=== PATIENT | male | born 1990 | race Hispanic/Latino ===

== ENCOUNTER 2017-10-20 11:22 | Emergency (ER) | payer MEDICARE ==
[2017-10-20 12:27] VITALS: BP 134/65
[2017-10-20 13:02] LABS: Basophils # (Auto) 0.1 K/mm3 (0.0-0.1); Basophils % (Auto) 1.1 % (0.0-1.8); Eosinophils # (Auto) 0.1 K/mm3 (0.0-0.4); Eosinophils % (Auto) 1.2 % (0.0-4.3); Hematocrit 41.7 % (35.5-45.6); Hemoglobin 14.6 gm/dl (11.8-15.2); Lymphocytes # (Auto) 1.7 K/mm3 (1.2-5.4); Lymphocytes % (Auto) 30.1 % (13.4-35.0); Mean Corpuscular HGB Conc 35 % (32-34); Mean Corpuscular Hemoglobin 31 pg (28-32); Mean Corpuscular Volume 88 fl (84-94); Monocytes # (Auto) 0.6 K/mm3 (0.0-0.8); Monocytes % (Auto) 9.6 % (0.0-7.3); Platelet Count 189 K/mm3 (140-440); Red Blood Count 4.72 M/mm3 (3.65-5.03); Red Cell Distribution Width 13.2 % (13.2-15.2)
[2017-10-20 13:25] LABS: BUN/Creatinine Ratio 16; Blood Urea Nitrogen 18 mg/dL (9-20); Calcium 9.4 mg/dL (8.4-10.2); Hemolysis Index 9
[2017-10-20 13:29] LABS: Bilirubin,Urine NEG (Negative); Blood,Urine NEG (Negative); Color,Urine Straw (Yellow); Protein,Urine <15 mg/dL mg/dL (Negative); Urobilinogen,Urine < 2.0 mg/dL (<2.0); WBC,Urine < 1.0 /HPF (0.0-6.0)
[2017-10-20] MEDS ORDERED: TYLENOL PO ONE (13:38)
[2017-10-20] MEDS ORDERED: ALUM-MAG HYDROX-SIMETH 200-200-20MG/5ML PO ONE (13:38)
[2017-10-20 13:43] LABS: Amphetamine Screen,Urine PRESUMPTIVE NEGATIVE; Benzodiazepines Screen,Urine PRESUMPTIVE NEGATIVE; Cannabinoid Screen,Urine PRESUMPTIVE NEGATIVE; Cocaine Screen,Urine PRESUMPTIVE NEGATIVE; Methadone Screen,Urine PRESUMPTIVE NEGATIVE; Opiate Screen,Urine PRESUMPTIVE NEGATIVE
--- NOTE | 2017-10-20 13:43 | Emergency Department Report ---
ED Psych HPI - General Chief Complaint: Psych Stated Complaint: MENTAL EVAL Time Seen by Provider: 10/20/17 13:27 Source: patient Mode of arrival: Ambulatory - History of Present Illness Initial Comments: Carrington is a 26 yo male with hx of autism who presents 2 weeks of destructive combative behavior. I obtained hx from caregiver Tobin who is bedside. Carrington has been a resident of this senior living for 4 years. He has a hx of property destruction. He has been kicking pepe and throwing objects. He is threatening to harm his roommates. [facility] advanced practice professional has requested psychiatric evaluation. He does have a personal psychiatrist. Carrington admits that he is angry. However, he does not want to hurt himself or anyone else. He has central mild stomach pain. No other symptoms. MD Complaint: other (combative behavior, agitation, property destruction) -: Gradual, week(s) (2) History of same: Yes Quality: constant Worsens With: none Associated Symptoms: other (stomach pain) - Related Data Home Medications Medication Instructions Recorded Confirmed Last Taken Ativan 0.5 mg PO 10/20/17 Unknown Depakote PO UNK 10/20/17 Unknown Geodon 40 mg PO 10/20/17 Unknown RisperDAL 3 mg PO 10/20/17 Unknown traZODone 150 mg PO 10/20/17 Unknown Allergies Allergy/AdvReac Type Severity Reaction Status Date / Time No Known Allergies Allergy Verified 10/20/17 12:23 ED Review of Systems ROS: Stated complaint: MENTAL EVAL Other details as noted in HPI Comment: All other systems reviewed and negative Constitutional: denies: fever, malaise Respiratory: denies: cough Cardiovascular: denies: chest pain ED Past Medical Hx - Past Medical History Previous Medical History?: No Additional medical history: autism - Surgical History Past Surgical History?: No - Social History Smoking Status: Never Smoker Substance Use Type: None - Medications Home Medications: Home Medications Medication Instructions Recorded Confirmed Last Taken Type Ativan 0.5 mg PO 10/20/17 Unknown History Depakote PO UNK 10/20/17 Unknown History Geodon 40 mg PO 10/20/17 Unknown History RisperDAL 3 mg PO 10/20/17 Unknown History traZODone 150 mg PO 10/20/17 Unknown History ED Physical Exam - General Limitations: No Limitations General appearance: alert, in no apparent distress - Head Head exam: Present: atraumatic, normocephalic - Eye Eye exam: Present: normal appearance - ENT ENT exam: Present: mucous membranes moist - Neck Neck exam: Present: normal inspection. Absent: tenderness, meningismus - Respiratory Respiratory exam: Present: normal lung sounds bilaterally. Absent: respiratory distress, wheezes, rales, rhonchi - Cardiovascular Cardiovascular Exam: Present: regular rate, normal rhythm. Absent: systolic murmur, diastolic murmur, rubs, gallop - GI/Abdominal GI/Abdominal exam: Present: soft, normal bowel sounds. Absent: distended, tenderness, guarding, rebound - Rectal Rectal exam: Present: deferred - Extremities Exam Extremities exam: Present: normal inspection - Back Exam Back exam: Present: normal inspection - Neurological Exam Neurological exam: Present: alert, oriented X3 - Psychiatric Psychiatric exam: Present: normal mood, flat affect, other (calm cooperative) - Skin Skin exam: Present: warm, dry, intact, normal color. Absent: rash ED Course Vital Signs 10/20/17 10/20/17 12:23 14:32 Temperature 99 F Pulse Rate 72 Respiratory 16 20 Rate Blood Pressure 134/65 O2 Sat by Pulse 96 97 Oximetry ED Medical Decision Making - Lab Data Result diagrams: 10/20/17 12:48 10/20/17 12:48 Laboratory Results - last 24 hr 10/20/17 10/20/17 10/20/17 12:48 12:48 12:48 WBC RBC Hgb Hct MCV MCH MCHC RDW Plt Count Lymph % (Auto) [place] % (Auto) Eos % (Auto) Baso % (Auto) Lymph # [place] # Eos # Baso # Seg Neutrophils % Seg Neutrophils # Sodium 141 Potassium 4.5 Chloride 101.8 Carbon Dioxide 26 Anion Gap 18 BUN 18 Creatinine 1.1 Estimated GFR > 60 BUN/Creatinine Ratio 16 Glucose 111 H Calcium 9.4 Urine Color Urine Turbidity Urine pH Ur Specific [place] Urine Protein Urine Glucose (UA) Urine Ketones Urine Blood Urine Nitrite Urine Bilirubin Urine Urobilinogen Ur Leukocyte Esterase Urine WBC (Auto) Urine RBC (Auto) Salicylates < 0.3 L Urine Opiates Screen Urine Methadone Screen Acetaminophen < 5.0 L Ur Barbiturates Screen Ur Phencyclidine Scrn Ur Amphetamines Screen U Benzodiazepines Scrn Urine Cocaine Screen U Marijuana (THC) Screen Plasma/Serum Alcohol 10/20/17 10/20/17 10/20/17 12:48 12:48 13:10 WBC 5.8 RBC 4.72 Hgb 14.6 Hct 41.7 MCV 88 MCH 31 MCHC 35 H RDW 13.2 Plt Count 189 Lymph % (Auto) 30.1 [place] % (Auto) 9.6 H Eos % (Auto) 1.2 Baso % (Auto) 1.1 Lymph # 1.7 [place] # 0.6 Eos # 0.1 Baso # 0.1 Seg Neutrophils % 58.0 Seg Neutrophils # 3.4 Sodium Potassium Chloride Carbon Dioxide Anion Gap BUN Creatinine Estimated GFR BUN/Creatinine Ratio Glucose Calcium Urine Color Straw Urine Turbidity Clear Urine pH 8.0 H Ur Specific [place] 1.008 Urine Protein <15 mg/dl Urine Glucose (UA) Neg Urine Ketones Neg Urine Blood Neg Urine Nitrite Neg Urine Bilirubin Neg Urine Urobilinogen < 2.0 Ur Leukocyte Esterase Neg Urine WBC (Auto) < 1.0 Urine RBC (Auto) 1.0 Salicylates Urine Opiates Screen Urine Methadone Screen Acetaminophen Ur Barbiturates Screen Ur Phencyclidine Scrn Ur Amphetamines Screen U Benzodiazepines Scrn Urine Cocaine Screen U Marijuana (THC) Screen Plasma/Serum Alcohol < 0.01 10/20/17 13:10 WBC RBC Hgb Hct MCV MCH MCHC RDW Plt Count Lymph % (Auto) [place] % (Auto) Eos % (Auto) Baso % (Auto) Lymph # [place] # Eos # Baso # Seg Neutrophils % Seg Neutrophils # Sodium Potassium Chloride Carbon Dioxide Anion Gap BUN Creatinine Estimated GFR BUN/Creatinine Ratio Glucose Calcium Urine Color Urine Turbidity Urine pH Ur Specific [place] Urine Protein Urine Glucose (UA) Urine Ketones Urine Blood Urine Nitrite Urine Bilirubin Urine Urobilinogen Ur Leukocyte Esterase Urine WBC (Auto) Urine RBC (Auto) Salicylates Urine Opiates Screen Presumptive negative Urine Methadone Screen Presumptive negative Acetaminophen Ur Barbiturates Screen Presumptive negative Ur Phencyclidine Scrn Presumptive negative Ur Amphetamines Screen Presumptive negative U Benzodiazepines Scrn Presumptive negative Urine Cocaine Screen Presumptive negative U Marijuana (THC) Screen Presumptive negative Plasma/Serum Alcohol - Medical Decision Making Carrington is 26 yo male with hx of autism who presents with combative, destructive behavior over the past 2 weeks. He is taking psychiatric medications. Caregiver requests a psychiatric evaluations. He is medically clear for psychiatric care. Normal WBC on labs. No abdominal tenderness. I suspect Carrington has constipation which is causing the pain. We provided Tylenol and Mylanta in the ED. Our MH patent legal assistant Ann agreed that Carrington does not meet inpatient criteria. Outpatient f/u with his personal psychiatrist is recommended. dc'd home to care of Caregiver bedside. Critical care attestation.: If time is entered above; I have spent that time in minutes in the direct care of this critically ill patient, excluding procedure time. ED Disposition Clinical Impression: Autism, Combative behavior Disposition: [id number] TO HOME OR SELFCARE Is pt being admited?: No Does the pt Need Aspirin: No Condition: Stable Instructions: Autism (ED) Additional Instructions: Please follow up with Carrington's personal psychiatrist. Time of Disposition: 15:55
== END 2017-10-20 17:40 | disposition home or self-care (01) ==
LOC: ED 11:22
DX: F84.0 Autistic disorder (principal); R45.6 Violent behavior
CPT/HCPCS: 36415; 80048; 80307; 81001; 85025; 99284; G0480; 80320